=== PATIENT | male | born 1990 | race Caucasian/White ===

== ENCOUNTER 2024-05-30 14:50 | Outpatient (CLI) | payer BC, SELFPAY ==
--- NOTE | ~2024-05-30 | CT_ITS ---
EXAMINATION: CT abdomen pelvis wo con DATE: 05/30/2024 15:12 INDICATION: Unilateral inguinal hernia TECHNIQUE: Computed tomography (CT) of the abdomen and pelvis was performed without intravenous contr ast. Automated exposure control and iterative reconstruction technique were employed. The dose-length product was 1108.05 mGy-cm. COMPARISON: 09/01/2016 FINDINGS: Lung bases are clear. Heart size is normal. No pericardial or pleural effusion. Gallbladder is not vi sualized and likely surgically absent. Liver, pancreas, bilateral adrenal glands and kidneys are norm al. Splenomegaly measuring 19.5 cm maximal length. Large indirect left inguinal hernia which contains a significant length of the proximal sigmoid colon which extends caudally to the scrotum. No abnorma l bowel wall thickening or obstruction. Normal appendix. Small fat-containing umbilical hernia. Bladd er is normal. No free intraperitoneal gas or fluid. No pathologically enlarged abdominal or pelvic ly mphadenopathy. Mild thoracolumbar dextrocurvature. Chronic T8 compression fracture with 40% anterior vertebral body height loss. IMPRESSION: 1. Large indirect left inguinal hernia containing a significant length of otherwise normal-appearing nonobstructed sigmoid colon. 2. Small fat-containing umbilical hernia. 3. Nonspecific splenomegaly. Reviewed, dictated and finalized at location B. IMPRESSION: 1. Large indirect left inguinal hernia containing a significant length of other robbins normal-appearing nonobstructed sigmoid colon. 2. Small fat-containing umbilical hernia. 3. Nonspecific splenomegaly.
== END 2024-05-30 14:51 | disposition home or self-care (01) ==
LOC: ANHIMG 14:51
PROVIDERS: PCP Family Medicine; Visit Provider Surgery
DX: K40.30 Unilateral inguinal hernia, with obstruction, without gangrene, not specified as recurrent (principal); K44.9 Diaphragmatic hernia without obstruction or gangrene
CPT/HCPCS: 74176

== ENCOUNTER 2024-06-26 01:46 | Day surgery (SDC) | payer BC, SELFPAY ==
[2024-06-20 15:55] VITALS: BMI 28.8
--- NOTE | 2024-06-20 16:06 | PC.NURSE ---
Report to the Outpatient Waiting Room, entrance under the green pavilion located off [facility], at time _0830_ on date _[id number]_. Planned Procedure Time: _1030_. Time changes happen often and if your time is changed the preop area will call you the afternoon before. - You and your visitor will be asked to self-screen and do not enter if you have any COVID symptoms. - A mask is optional within the hospital at this time. Patients may have clear liquids (water, carbonated beverages, clear teas, apple juice) until 3 hours prior to surgery with a maximum of 20 ounces. - No food from midnight until time of surgery Take the following medications with a SIP of water the morning of surgery: ___None DO NOT STOP ANY OF YOUR OTHER PRESCRIPTION MEDICATIONS PRIOR TO SURGERY ?EXCEPT THE FOLLOWING Medications to discontinue per physician Fish oil Date to take last dqpt___[id number] Please no make-up, nail sinhala, hairspray, perfume, deodorant, or body powder the day of surgery. No jewelry (including any body piercings) or valuables the day of surgery, leave them at home. Please take a shower or bath the night before, or the morning of, surgery with an antibacterial soap. Wear comfortable, loose fitting clothing. - Jewelry must be removed prior to entering the operating room. Rings and piercings that are not removed may be cut off. - The hospital will not accept responsibility for valuables. - Please leave all valuables, including medications, at home the day of surgery. If you are going home after surgery, a licensed substitute bus driver must drive you home. - NO public transportation without another adult if you receive anesthesia. - We recommend that an adult stay with you for 24 hours following discharge. - We also recommend that you do not drive, make important decision, drink alcoholic beverages, or take any drugs that were not prescribed by your health care provider for at least 24 hours after your discharge time. Follow any additional instructions given to you from your surgeon. If you or anyone in your household have experienced Covid symptoms in the past week, please notify your surgeon or the nurse liaison at the phone number below for possible testing. Telephone instructions given to __John__and asked if any additional questions and then verbalized understanding. Patient advised to call surgeon office or pre surgery nurse liaison [phone] if any additional questions.
[2024-06-26] VITALS (9 sets, daily range): BP systolic 103–139; BP diastolic 55–97; PULSE 70–95; RESP 16–22; TEMP 36.1–36.9; O2SAT 95–100
[2024-06-26] MEDS: LACTATED RINGERS 1,000 ML 30 ML IV CONT ×2 (09:15→15:01)
[2024-06-26] MEDS: ACETAMINOPHEN 500 MG TABLET 1000 MG PO (10:12)
[2024-06-26] MEDS: KETOROLAC 15 MG/ML VIAL (*BKC) IV PUSH (10:12)
--- NOTE | 2024-06-26 10:38 | P.PNAN_ITS ---
Anes - Initial Pre Proc Eval Procedure: Operation Date: 06/26/24 10:30 Proposed Procedures p Open Incarcerated Left Inguinal Hernia Repair with Mesh, - Collin Garrison MD s Open Umbilical Hernia Repair - Collin Garrison MD Date/Time: 06/26/24 10:38 Surgeon: Collin Garrison MD Pre Op Diagnosis: incarc left inguinal hernia, reduc umbilical herni Patient Data Age: 33 Gender: M Height: 1.88 m Weight: 99.8 kg Last Vital Signs Temp 97.0 F L 06/26/24 09:15 Pulse 74 06/26/24 09:15 Resp 16 06/26/24 09:15 BP 129/73 06/26/24 09:15 Pulse Ox 100 06/26/24 09:15 O2 Del Method Room Air 06/26/24 09:15 Allergies Allergy/AdvReac Type Severity Reaction Status Date / Time No Known Allergies Allergy Verified 06/26/24 10:12 Home Medications Medication Instructions Recorded Confirmed Type omega-3 acid ethyl esters 1 gram 2 cap PO BID #360 caps 01/24/24 06/26/24 Rx capsule Patient hx anesthesia problems: none Family hx anesthesia problems: none Results Review: All pre-operative results and documents have been reviewed as part of the pre- operative evaluation. [facility] Past Medical History Medical History Seizure-like activity Surgical History Surgical History Hx laparoscopic cholecystectomy Family History Family History (Updated 06/14/24 @ 10:44 by Jaclyn Hinds) Father Non-Hodgkins lymphoma Grandparent Non-Hodgkins lymphoma Cancer Other Breast cancer Lymphocytic leukemia Social History Social History Social History: Caffeine-coffee/soda Smoking status: Never smoker Alcohol intake: current Drinks per week: 1 Alcohol use details: Occasional Substance use: never Substance use type: does not use Do You Feel Safe in your Home?: Yes Lack of Transportation: No Lack of Food: Never True Current Housing: I Have Housing Concerned About Future Housing: No Difficulty Paying Gas/Electric Bills: No Difficulty Paying for Meds: No Currently Unemployed: No Education: Bachelor's Degree Difficulty w/ Childcare or Family Care: No Living arrangements: alone Spiritual care concerns: No Anes - Eval Final PreProcedure Day of Procedure 06/26/24 10:38 Patient weight: normal Heart: regular rate and rhythm Lungs: clear to auscultation Airway: Mallampati scale class II Neurological: alert and oriented Last oral intake: >/= 8 hours ASA classification: II Emergent: no Anesthetic plan: proceed Anesthesia type and monitoring: general ETT and standard monitoring Results Review: All pre-operative results and documents have been reviewed as part of the pre- operative evaluation. Informed Consent: The patient's anesthetic plan and its attendant risks and benefits were discussed with the patient/family/POA. Questions were solicited and answers provided to the satisfaction of the patient/family/POA.
--- NOTE | 2024-06-26 11:23 | WPDHPUPDATE1 ---
History and Physical Update Update Date/Time: 06/26/24 11:23 History and Physical has been reviewed, including an updated exam of the patient. There are NO changes in the patient's condition. Risks, benefits, and alternatives have been discussed and questions answered. Patient agrees to proceed with procedure.
[2024-06-26] MEDS: ceFAZolin 2 GM/D5W 50 ML 2 GM/50 ML BAG IVPB (11:33)
[2024-06-26] MEDS: LIDO 1%/EPINEPHRINE 1:100,000 50 ML VIAL 30 ML INFILTRATE (12:20)
--- NOTE | 2024-06-26 16:08 | PM.OP ---
Procedure Note - Brief Procedure Note - Brief Date of procedure: 06/26/24 incarc left inguinal hernia, reduc umbilical herni Post-op diagnosis: Same (Incarcerated left inguinal scrotal hernia, reducible umbilical hernia.) Procedure performed: Open incarcerated left inguinal scrotal hernia repair with onlay heavy weight Marlex mesh. (Tuyet repair). Open reducible umbilical hernia repair without mesh. Surgeon: Collin Garrison MD Anesthesia: GLMA Implants: Left groin heavy weight Marlex mesh onlay patch 13.7x5.9cm oval. (Tuyet repair) Estimated blood loss (mL): 25 Drains: Yes (10 Bengali round Jimmy drain left groin and scrotum.) Packing: No Pathology: None sent Complications: No immediate complications Condition: Stable Disposition: PACU
--- NOTE | 2024-06-26 16:58 | SUR.PHASEII ---
Pt ambulated to bathroom and voided unmeasured amount without difficulty.
--- NOTE | 2024-06-27 17:13 | W.PM.PROC2 ---
Procedure Note - Detailed Date of Procedure 06/26/24 Pre-op Diagnosis Incarcerated left inguinal scrotal hernia, reducible umbilical hernia. Post-op Diagnosis Same Procedure Performed Open incarcerated left inguinal hernia repair with Bard heavy weight Marlex onlay patch mesh ( Tuyet repair ). Open umbilical hernia repair without mesh ( defect equals 1.5cm ). Surgeon Collin Garrison MD Cash Applications Associate MARIE Woodosn Anesthesia General Indications Patient is a 33-year-old male who presented with a large left inguinal hernia extending into the left hemiscrotum. It was not reducible. CT imaging revealed nonobstructed sigmoid colon within the hernia defect and left hemiscrotum. It also showed a small umbilical hernia. He presents now for open repair of both of these hernias. Findings Patient had a large indirect left inguinal hernia with a large hernia sac extending all the way down into the left scrotum. All the sigmoid colon appeared to be viable. The umbilical hernia defect at the fascial level measured approximately 1.5cm. Description of Procedure After informed consent was obtained, patient was taken to the operating room was placed supine position and general endotracheal anesthesia was administered. The abdomen and bilateral groin regions as well as the scrotum and penis were then prepped and draped usual sterile fashion after placement of a Esteban catheter sterilely. Time-out was then performed correctly identifying the patient as well as procedure to be performed. Site marking was verified. He had been given Ancef for perioperative IV antibiotics. Addressed repairing the large left inguinal scrotal hernia 1st. An oblique incision was then made a left groin region extending just below the left anterior superior iliac spine and extending all the way down onto the upper portions of the scrotum on the left side. Dissection carried down through the dermis skin with a scalpel and then in the subcutaneous tissues I dissected down electrocautery down through Kp's fascia distally up in the groin region. The Kp's fascia was divided electrocautery and then the external oblique aponeurosis was encountered. Subcutaneous tissues were then dissected off the external oblique aponeurosis. I was then able to separate the overlying subcutaneous tissues from the hernia sac which extended down into the left hemiscrotum and opened this area up with electrocautery. I then sized the external oblique aponeurosis with a scalpel along the direction of its fibers. I then opened the external oblique aponeurosis out through the external ring electrocautery. I then the external oblique aponeurosis from the underlying muscle fibers retracted the external oblique aponeurosis edges laterally. Then with combination of blunt finger electrocautery dissection I was able to dissect down to the pubic tubercle. With a combination of blunt finger and electrocautery dissection I was then able to deliver the hernia sac out of the left hemiscrotum. The testicle was left attached inside the left hemiscrotum. I identified the vas deferens and testicular vessels adherent to the large indirect inguinal hernia sac. These 2 structures then dissected off the hernia sac with electrocautery dissection very carefully without injury to either of the 2 structures. Through the hernia sac I could see there was bowel and this was going to be the sigmoid colon as indicated on CT scan. It appeared to be viable. I then reduced the whole large hernia sac and its contents to include the sigmoid colon back through the large dilated internal ring without opening the hernia sac. I had to enlarge the internal ring by dividing some fibers of it superiorly with electrocautery to allow reduction of the hernia sac and contents. Once this was done I then proceeded to close the floor of the inguinal canal utilizing interrupted 0 Ethibond sutures to bring the conjoined tendon an
== END 2024-06-26 17:05 | disposition home or self-care (01) ==
PROVIDERS: PCP Family Medicine; Visit Provider Surgery
PROC: (CPT 49507; principal; 2024-06-26 10:30)
PROC: (CPT 49507; 2024-06-26 10:30)
DX: K40.30 Unilateral inguinal hernia, with obstruction, without gangrene, not specified as recurrent (principal); K42.9 Umbilical hernia without obstruction or gangrene; Z90.49 Acquired absence of other specified parts of digestive tract; Z80.3 Family history of malignant neoplasm of breast; Z80.7 Family history of other malignant neoplasms of lymphoid, hematopoietic and related tissues
CPT/HCPCS: 49507; 49591; A9270; C1781; J0330; J0690; J1100; J1170; J1885; J2250; J2405; J2704; J3010; J7120

== ENCOUNTER 2024-12-26 07:41 | Outpatient (CLI) | payer BC, SELFPAY ==
--- NOTE | ~2024-12-26 | US_ITS ---
EXAMINATION: US scrotum doppler DATE: 12/26/2024 08:55 INDICATION: Disorders of male genital organs TECHNIQUE: Testicular sonogram utilizing grayscale and Doppler COMPARISON: CT dated 05/30/2024 FINDINGS: The right testis measures 4.3 x 2.4 x 3.3 cm. The left testis measures 4.7 x 3.1 x 2.9 cm. Symmetric normal grayscale appearance to both testes. There is a 6 mm testicular appendix at the periphery of t he left testis. There is normal vascular flow to both testes. 4 mm anechoic right epididymal cyst. Th e right epididymis is otherwise normal with normal vascular flow. The left epididymis is normal with normal vascular flow. Large nearly anechoic left hydrocele. There is no varicocele or right hydrocele . Cephalad to the left testis in the left inguinal canal is a 4.2 x 4.1 cm complex cystic lesion with to have 3 mm peripheral wall surrounding hypoechoic likely complex fluid with posterior acoustic enh ancement. This could represent with the proximal sigmoid colon extends into a large left inguinal her valeria on prior CT. IMPRESSION: 1. Large left hydrocele. 2. Complex cystic structure at the inferior left inguinal canal, potentially liquids stool within the herniated segment of proximal sigmoid colon as as seen on prior CT. Differential would include hemat hunter or abscess in the appropriate clinical setting. Reviewed, dictated and finalized at location B. TING ROLLER POLISHER IMPRESSION: 1. Large left hydrocele. 2. Complex cystic structure at the inferior left inguinal canal, potentially li quids stool within the herniated segment of proximal sigmoid colon as as seen o n prior CT. Differential would include hematoma or abscess in the appropriate c linical setting.
== END 2024-12-26 07:42 | disposition home or self-care (01) ==
PROVIDERS: PCP Family Medicine; Visit Provider Surgery
DX: N50.89 Other specified disorders of the male genital organs (principal); N43.3 Hydrocele, unspecified
CPT/HCPCS: 76870; 93976

== ENCOUNTER 2025-01-02 08:18 | Outpatient (CLI) | payer BC, SELFPAY ==
--- OUTSIDE RECORDS SUMMARY | 2025-01-02 08:29 | XMS_ITS | Referral Summary ---
Author Organization [facility] Address [address] [place] [address] Care Team Providers Care Field Gauger Name Role Phone Leda Olivares DO Primary Care Provider [phone] Source Comments [facility],non-owned Affiliates and Associated Physician Practices is [place] [facility] organization consisting of ambulatory clinics and hospital sitesin [place], [place], [place] and [place]. This disclosure is being madepursuant to the Care Everywhere program and may not contain all information available regarding this patient. Last updated 18.[facility] Encounters Date Type Department Care Team Description 12/22/2024 Travel 12/11/2024 Orders Only [facility] - Neurology [address] [place] [phone] Marleny Lezama APRN-CNP Abnormal movement 11/17/2024 Procedure visit [facility] - Neurology [address] [place] [phone] Laci Smith DO Seizure-like activity (HCC) 10/31/2024 3:30 PM FISH NET STRINGER Video Visit [facility] - Neurology [address] [place] [phone] Marleny Lezama APRN-CNP Memory loss ; Seizure-like activity (HCC) 10/12/2024 Telephone [facility] - Neurology [address] [place] [phone] Marleny Lezama APRN-CNP Order (Neurovative) 10/11/2024 Telephone [facility] - Neurology [address] [place] [phone] Marleny Lezama APRN-CNP Referral ([facility]) 10/11/2024 Orders Only [facility] - Neurology [address] [place] [phone] Marleny Lezama APRN-CNP Memory loss from Last 3 Months Allergies No known active allergies Medications * Be aware that medications may not be up to date on this document. Alwaysverify current medications with the patient. Medication Sig Dispensed Refills Start Date End Date Status unirm-0-ljuz ethyl esters (Lovaza) 1 g capsule Take 1 (one) capsule by mouth 11/24/2023 Active Active Problems Problem Noted Date Diagnosed Date Memory loss 04/23/2022 Seizure-like activity 08/13/2021 Immunizations Name Administration Dates Next Due INFLUENZA VACCINE 09/26/2018 Social History Tobacco Use Types Packs/Day Years Used Date Smoking Tobacco: Never Smokeless Tobacco: Never Tobacco Cessation:Counseling Given: Not Answered Alcohol Use Standard Drinks/Week Comments No 0 (1 standard drink = 0.6 oz pur e alcohol) Sex and Gender Information Value Date Recorded Sex Assigned at Not on file Gender Identity Not on file Sexual Orientation Not on file Last Filed Vital Signs Vital Sign Reading Time Taken Comments Blood Pressure 113/72 04/25/2024 2:23 PM CDT Pulse 77 04/25/2024 2:23 PM CDT Temperature 36.4 ??C (97.6 ??F) 04/23/2022 10:56 AM C DT Respiratory Rate 16 12/18/2019 2:08 PM FISH NET STRINGER Oxygen Saturation 97% 04/25/2024 2:23 PM CDT Inhaled Oxygen Concentration - - Weight 103.9 kg (229 lb) 04/25/2024 2:23 PM CDT Height 188 cm (6' 2 ) 04/25/2024 2:23 PM CDT Body Mass Index 29.4 04/25/2024 2:23 PM CDT Plan of Treatment Upcoming Encounters Date Type Department Care Team (Late st Contact Info) Description 03/15/2025 9:00 AM CDT Office Visit [facility] - Neurology [address] [place] [phone] Nafisa Hoyt, METAL MINER BLASTING-DOCUMENT CONTROL SUPERVISOR [address] [place] [phone] 06/20/2025 10:00 AM CDT Office Visit [facility] - Neurology [address] [facility] [place] [phone] Marleny Lezama, METAL MINER BLASTING-DOCUMENT CONTROL SUPERVISOR [address] [place] [phone] Care Teams Field Gauger Relationship Specialty Start Date End Date Leda Olivares DO [address] [place], [place] [phone] PCP - General 04/20/22
--- OUTSIDE RECORDS SUMMARY | 2025-01-02 08:29 | XMS_ITS | Patient Health Summary ---
Author Organization [facility] Address [address] [facility] [place] [address] Care Team Providers Care Paint Tinter Name Role Phone Leda Olivares DO Primary Care Provider [phone] Note from [facility],non-owned Affiliates and Associated Physician Practices is amultiple site organization consisting of ambulatory clinics and hospital sitesin [place], [place], [place] and [place]. This disclosure is being madepursuant to the Care Everywhere program and may not contain all information available regarding this patient. Last updated 18.[facility] Allergies No known active allergies Medications * Be aware that medications may not be up to date on this document. Alwaysverify current medications with the patient. * oshks-7-ulgm ethyl esters (Lovaza) 1 g capsule(Started 11/24/2023) Take 1 (one) capsule by mouth Active Problems Problem Noted Date Diagnosed Date Memory loss 04/23/2022 Seizure-like activity 08/13/2021 Immunizations * INFLUENZA VACCINE(Given 09/26/2018) Social History Tobacco Use Types Packs/Day Years [...] DT Respiratory Rate 16 12/18/2019 2:08 PM CUT ROLL MACHINE OFFBEARER Oxygen Saturation 97% 04/25/2024 2:23 PM CDT Inhaled Oxygen Concentration - - Weight 103.9 kg (229 lb) 04/25/2024 2:23 PM CDT Height 188 cm (6' 2 ) 04/25/2024 2:23 PM CDT Body Mass Index 29.4 04/25/2024 2:23 PM CDT Procedures * MRI BRAIN WO CONTRAST(Performed 05/21/2024) Performed for Memory loss, Seizure-like activity (HCC) * STREP A SCREEN - POINT OF CARE (AMB) STL(Performed 11/11/2018) Performed for Acute pharyngitis, unspecified etiology Results * MRI BRAIN WO CONTRAST (05/21/2024 2:29 PM CDT) Anatomical Region Laterality Modality Head Magnetic Resonan ce 05/29/2024 1:04 PM CDT Impressions 05/29/2024 1:21 PM CDT IMPRESSION: 1. No acute intracranial process. Specifically, no acute infarct or acute intracranial hemorrhage. 2. Diffuse volume loss of the brain, more pronounced in the cerebellum which may be related to long-standing epilepsy 3. Atrophy of the hippocampi, which is likely related to diffuse cerebral volume loss versus less likely early mesial temporal sclerosis > Interpreting Provider: Patricia Patel MD on 05/29/2024 1:21 PM Narrative 05/29/2024 1:21 PM CDT PROCEDURE: ??MRI BRAIN WO CONTRAST, DATE/TIME OF EXAM: ??05/21/2024 2:29 PM, LOCATION ??[facility] INDICATION: R41.3: Memory loss R56.9: Seizure-like activity (HCC) ADDITIONAL CLINICAL INFORMATION: Ordering Provider Reason For Exam: ??epilepsy protocol Technologist Note: Additional: TECHNIQUE: MRI of the brain was performed without intravenous contrast according to epilepsy protocol. CONTRAST: COMPARISON: No prior study is available for comparison at the time of this dictation. FINDINGS: The study is significantly degraded by motion artifacts which can obscure abnormalities. No evidence of acute cerebral infarction is seen. No evidence of acute or chronic hemorrhage is identified. There is mild cerebral volume loss with associated ex vacuo ventricular dilatation. Moderate atrophy of the cerebellum. No mass effect or midline shift is seen. There is atrophy of the hippocampi, which is likely related to diffuse cerebral volume loss versus less likely early mesial temporal sclerosis. The corpus callosum and sella appear normal. The posterior fossa, brainstem, and craniocervical junction appear normal. The visualized portions of the orbits, paranasal sinuses, and mastoids appear normal. Normal flow voids are demonstrated in the carotid arteries and basilar artery. The calvarium and visualized cervical spine appear normal. Procedure Note Patricia Patel MD - 05/29/2024 PROCEDURE: MRI BRAIN WO CONTRAST, DATE/TIME OF EXAM: 05/21/2024 2:29PM, LOCATION [facility] INDICATION: R41.3: Memory loss R56.9: Seizure-like activity (HCC) ADDITIONAL CLINICAL INFORMATION: Ordering Provider Reason For Exam: epilepsy protocol Technologist Note: Additional: TECHNIQUE: MRI of the brain was performed without intravenous contrast according to epilepsy protocol. CONTRAST: COMPARISON: No prior study is available for comparison at the time ofthis dictation. FINDINGS: The study is significantly degraded by motion artifacts which canobscure abnormalities. No evidence of acute cerebral infarction is seen. No evidence of acuteor chronic hemorrhage is identified. There is mild cerebral volume losswith associated ex vacuo ventricular dilatation. Moderate atrophy of the cerebellum. No mass effect or midline shift is seen. There is atrophy of the hippocampi, which is likely related to diffuse cerebral volume loss versus less likely early mesial temporal sclerosis. The corpus callosumand sella appear normal. The posterior fossa, brainstem, and craniocervical junction appear normal. The visualized portions of the orbits, paranasal sinuses, and mastoids appear normal. Normal flow voids are demonstrated in the carotidarteries and basilar artery. The calvarium and visualized cervical spine appear normal. IMPRESSION: 1. No acute intracranial process. Specifically, no acute infarct oracute intracranial hemorrhage. 2. Diffuse volume loss of the brain, more pronounced in the cerebellum which may be related to long-standing epilepsy 3. Atrophy of the hippocampi, which is likely related to diffusecerebral volume loss versus less likely early mesial temporal sclerosis > Interpreting Provider: Patricia Patel MD on 05/29/2024 1:21 PM Marleny Lezama FUNCTIONAL CONSULTANT-RETREAD TECHNICIAN MR ORDERABLES * STREP A SCREEN (11/11/2018 9:27 AM CUT ROLL MACHINE OFFBEARER) Strep A Rapid POCT Negative Negative Strep A Internal Control Present Lot # [id number] Expiration Date 03/28/20 Throat ENTIRE THROAT (SURFACE REGION OF NECK) / Unknown 11/11/2018 9:27 AM CUT ROLL MACHINE OFFBEARER Latosha Martinez FUNCTIONAL CONSULTANT-RETREAD TECHNICIAN LAB - POINT OF CA RE ORDERABLES Care Teams Paint Tinter Relationship Specialty Start Date End Date Leda Olivares DO [address] [place] [address] PCP - General 04/20/22
--- OUTSIDE RECORDS SUMMARY | 2025-01-02 08:29 | XMS_ITS | Referral Summary ---
Author Organization [facility] Address [address] [place] [address] Care Team Providers Care Minister Assistant Name Role Phone Leda Olivares DO Primary Care Provider [phone]- [phone] Allergies No known active allergies Medications fenofibrate (TRICOR) 54 mg tabletIndication s:High Density Lipoprotein (HDL) Deficiency Take 1 tablet (54 mg total) by mouth nightly 07/13/2021 Active omega-3 fatty acids (LOVAZA) 1 gram capsule Take 1 capsule (1 g total) by mouth 11/24/2023 Active Active Problems Problem Noted Date Diagnosed Date Speech and language deficits 01/18/2024 Seizure-like activity 08/13/2021 Social History Tobacco Use Types Packs/Day Years Used Date Smoking Tobacco: Never Smokeless Tobacco: Never Tobacco Cessation:Counseling Given: Not Answered AUDIT-C Answer Date Recorded Q1: How often do you have a drink containing alc ohol? Monthly or less 10/28/2021 Q2: How many drinks containi ng alcohol do you have on a typical day when you are drinking? 1 or 2 10/28/2021 Q3: How often do you have si x or more drinks on one occasion? 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 Gender Identity Not on file Sexual Orientation Not on file Last Filed Vital Signs Vital Sign Reading Time Taken Comments Blood Pressure 124/77 01/18/2024 2:15 PM SENIOR NET APPLICATION DEVELOPER Pulse 73 01/18/2024 2:15 PM SENIOR NET APPLICATION DEVELOPER Temperature 36 ??C (96.8 ??F) 10/28/2021 12:50 PM SENIOR NET APPLICATION DEVELOPER Respiratory Rate 18 01/18/2024 2:15 PM SENIOR NET APPLICATION DEVELOPER Oxygen Saturation 95% 01/18/2024 2:15 PM SENIOR NET APPLICATION DEVELOPER Inhaled Oxygen Concentration - - Weight 105.2 kg (232 lb) 01/18/2024 2:15 PM SENIOR NET APPLICATION DEVELOPER Height 185.4 cm (6' 1 ) 01/18/2024 2:15 PM SENIOR NET APPLICATION DEVELOPER Body Mass Index 30.61 01/18/2024 2:15 PM SENIOR NET APPLICATION DEVELOPER Plan of Treatment Not on file Insurance Cmed Cmed [employer]RIN PREFERRED Care Teams Minister Assistant Relationship Specialty Start Date End Date Leda Olivares DO PCP - General Family Medicine 08/13/21
--- OUTSIDE RECORDS SUMMARY | 2025-01-02 08:30 | XMS_ITS | Encounter Summary ---
Author Organization [facility] Address [address] [place] [address]. [place], [place] [id number] [place] [address] Care Team Providers Care Dietary Tech Name Role Phone Sumit Rene MD Primary Care Provider [phone] Encounter Details Date Type Department Care Team (Late st Contact Info) Description 03/01/2024 [facility] Message [address] [address] [facility] Provider Schedule Appointment - Annual Physical Social History Tobacco Use Types Packs/Day Years Used Date Smoking Tobacco: Never Smokeless Tobacco: Never Alcohol Use Standard Drinks/Week Comments Yes 0 (1 standard drink = 0.6 oz pur e alcohol) socially, occasionally PHQ-2 Answer Date Recorded PHQ-2 Score - If the patient scores above 3, please move on to questions 3-9 0 07/29/2021 Sex and Gender Information Value Date Recorded Sex Assigned at Not on file Legal Sex Male 10:23 AM CDT Gender Identity Not on file Sexual Orientation Not on file documented as of this encounter Plan of Treatment Not on file documented as of this encounter Visit Diagnoses Not on filedocumented in this encounter Additional Health Concerns Assessment Noted Time PHQ-9 Depression Total Score: 0 07/29/20 21 2:50 PM CDT documented as of this encounter Care Teams Dietary Tech Relationship Specialty [place] [address] [place] [address] PCP - General FAMILY PRACTICE 07/14/21 documented as of this encounter
--- OUTSIDE RECORDS SUMMARY | 2025-01-02 08:30 | XMS_ITS | Clinical Summary ---
Author Organization [facility] Address [address] [place] [address] Care Team Providers Care Mailroom Manager Name Role Phone Leda Olivares DO Primary Care Provider [phone]- [phone] Allergies No known active allergies Medications fenofibrate (TRICOR) 54 mg tabletIndication s:High Density Lipoprotein (HDL) Deficiency Take 1 tablet (54 mg total) by mouth nightly 07/13/2021 Active omega-3 fatty acids (LOVAZA) 1 gram capsule Take 1 capsule (1 g total) by mouth 11/24/2023 Active Active Problems Problem Noted Date Diagnosed Date Speech and language deficits 01/18/2024 Seizure-like activity 08/13/2021 Surgical History Surgery Date Site/Laterality Comments CHOLECYSTECTOMY OPEN Medical History Medical History Date Comments Hyperlipemia Family History Medical History Relation Name Comments Anesthesia problems Neg Hx Social History Tobacco Use Types Packs/Day Years [...] on file Legal 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 Gender Identity Not on file Sexual Orientation Not on file Obstetrics History Last Filed Vital Signs Vital Sign Reading Time Taken Comments Blood Pressure 124/77 01/18/2024 2:15 PM EXECUTIVE TEAM LEADER Pulse 73 01/18/2024 2:15 PM EXECUTIVE TEAM LEADER Temperature 36 ??C (96.8 ??F) 10/28/2021 12:50 PM EXECUTIVE TEAM LEADER Respiratory Rate 18 01/18/2024 2:15 PM EXECUTIVE TEAM LEADER Oxygen Saturation 95% 01/18/2024 2:15 PM EXECUTIVE TEAM LEADER Inhaled Oxygen Concentration - - Weight 105.2 kg (232 lb) 01/18/2024 2:15 PM EXECUTIVE TEAM LEADER Height 185.4 cm (6' 1 ) 01/18/2024 2:15 PM EXECUTIVE TEAM LEADER Body Mass Index 30.61 01/18/2024 2:15 PM EXECUTIVE TEAM LEADER Plan of Treatment Health Maintenance Due Date Last Done Comments Depression Screening 1988 Hepatitis C Screening 1988 DTaP/Tdap/Td Vaccine (1 - Tdap) 1999 Varicella Vaccines (1 of 2 - 13+ 2-dose series) 2001 Hepatitis B Screening 2006 Regular Well Visit/Exam 18-64 2006 Covid-19 Vaccine (3 - 2023-2 5 season) 2024 01/16/2021, 12/26/2020 Influenza Vaccine (#1) 2024 8, 09/06/2016 HPV Vaccines Aged Out No longer eligi ble based on patient's age to complete this topic Pneumococcal vaccine <65 Aged Out No longer eligible based on patient's age to complete this topic Insurance [employer] ACCESS CHOICE ANTHEM ACCESS CHOICE Care Teams Mailroom Manager Relationship Specialty Start Date End Date Leda Olivares DO PCP - General Family Medicine 08/13/21
--- OUTSIDE RECORDS SUMMARY | 2025-01-02 08:30 | XMS_ITS | Clinical Summary ---
Author Organization [facility] Address [address] [place] [address]. [place], [place] [address] [place] [address] Care Team Providers Care Ct Technologist Name Role Phone Sumit Rene MD Primary Care Provider [phone]- [phone] Allergies No known active allergies Medications fenofibrate 54 MG tablet Take 54 mg by mouth daily. 07/13/2021 Active sildenafil 100 MG tablet Take 100 mg by mouth as needed. 06/26/2021 Active ALPRAZolam 0.5 MG tabletIndication s:Claustrophobia Take 1 tablet by mouth 30 min prior to MRI. 1 tablet 08/12/2021 Active Active Problems No known active problems Immunizations Name Administration Dates Next Due Influenza Adult (Generic) 09/26/2018 PFIZER COVID-19 (ORIGINAL FO RMULATION, PURPLE CAP) mRNA, LNP-S, PF, 30 MCG/0.3 ML DOSE 01/16/2021,12/26/2020 Family History Medical History Relation Comments Cancer Father No Known Problems Mother Relation Status Comments Father Alive Mother Alive Social History Tobacco Use Types Packs/Day Years [...] Sign Reading Time Taken Comments Blood Pressure 126/78 07/29/2021 2:43 PM CDT Pulse 70 07/29/2021 2:43 PM CDT Temperature 36.4 ??C (97.6 ??F) 07/29/2021 2:43 PM CD T Respiratory Rate 16 07/29/2021 2:43 PM CDT Oxygen Saturation 97% 07/29/2021 2:43 PM CDT Inhaled Oxygen Concentration - - Weight 105.8 kg (233 lb 3.2 oz) 07/29/2021 2:43 PM CDT Height 188 cm (6' 2 ) 07/29/2021 2:43 PM CDT Body Mass Index 29.94 07/29/2021 2:43 PM CDT Plan of Treatment Health Maintenance Due Date Last Done Comments Annual Physical 1991 PHQ-2 (Physician [employer]) 2000 Hepatitis C 2006 DTaP, Tdap and Td Vaccines ( 1 - Tdap) 2007 Hepatitis B Vaccines (1 of 3 - 19+ 3-dose series) 2007 COVID-19 Vaccine (3 - 2023-2 5 season) 2024 01/16/2021, 12/26/2020 Influenza Adult (#1) 2024 09/26/2018 PHQ-2 (Physician [employer]) 11/29/2024 HPV Vaccines Aged Out No longer eligi ble based on patient's age to complete this topic Meningococcal B Vaccine Aged Out No l onger eligible based on patient's age to complete this topic Meningococcal Vaccine Aged Out No [place] eligible based on patient's age to complete this topic Pneumococcal Vaccine: Pediatrics (0 to 5 Years) and At-Risk Patients (6 to 64 Years) Aged Out No longer eligible b ased on patient's age to complete this topic RSV Immunizations Under 20 Months Aged Out No longer eligible b ased on patient's age to complete this topic Insurance . [address] [employer] Care Teams Ct Technologist Relationship Specialty [place] [address] [place] [address] PCP - General FAMILY PRACTICE 07/14/21
[2025-01-02 12:27] LABS: Hematocrit 47.8 % (42.0-52.0); Hemoglobin 16.1 g/dL (14.0-18.0); Mean Corpuscular HGB Conc 33.7 g/dl (32-36); Mean Corpuscular Hemoglobin 28.8 pg (26-34); Mean Corpuscular Volume 85.5 fl (80-100); Mean Platelet Volume 9.8 fl (7.4-10.4); Platelet Count Result 129 k/mm3 (150-375); Red Blood Count 5.59 M/mm3 (4.6-6.20); White Blood Count 4.5 K/mm3 (4.5-10.0)
[2025-01-02 15:30] LABS: Alanine Aminotransferase 26 U/L (6-50); Albumin Level 4.4 g/dL (3.5-5.1); Alkaline Phosphatase 71 U/L (38-126); Anion Gap 9 mmol/L (4-12); Aspartate Amino Transferase 44 U/L (17-59); Bilirubin,Total 1.3 mg/dL (0.2-1.3); Blood Urea Nitrogen 16 mg/dL (9-20); Carbon Dioxide 30 mmol/L (22-30); Chloride 102 mmol/L (98-107); Cholesterol 171 mg/dL (0-200); Estimated Glomerular Filt Rate > 60; Glucose 90 mg/dL (65-110); HDL Direct 24 mg/dL; Potassium 4.8 mmol/L (3.4-5.0); Sodium 141 mmol/L (137-145); Triglycerides 349 mg/dL (<150)
[2025-01-02 15:41] LABS: LDL Cholesterol Direct 74 mg/dL
== END 2025-01-02 08:19 | disposition home or self-care (01) ==
LOC: ANHGOSHLAB 08:19
PROVIDERS: PCP Family Medicine; Visit Provider Family Medicine
DX: E78.1 Pure hyperglyceridemia (principal); E78.5 Hyperlipidemia, unspecified; E66.3 Overweight; Z79.899 Other long term (current) drug therapy
CPT/HCPCS: 36415; 80053; 80061; 84443; 85027